=== PATIENT | female | born 1995 | race Caucasian/White ===

== ENCOUNTER 2017-04-05 13:45 | Emergency (ER) | payer OTHER ==
[2017-04-05 13:59] VITALS: BP 106/76; PULSE 70; RESP 18; TEMP 97.9; O2SAT 96
[2017-04-05] MEDS ORDERED: FLUORESCEIN SODIUM 1 MG STRIP OP ONE (14:32)
[2017-04-05] MEDS ORDERED: PROPARACAINE 0.5% 15 ML OPHT DROP ONE (14:32)
--- NOTE | 2017-04-05 14:44 | EDPHY ---
H & P Stated Complaint: r eye irritation/drng and blurred vision Time Seen by Provider: 04/05/17 14:43 - Personal History LMP (Females 10-55): IUD In Place Current Tetanus/Diphtheria Vaccine: Yes - Medical/Surgical History Hx Asthma: No Hx Chronic Respiratory Disease: No Hx Diabetes: No Hx Cardiac Disease: No Hx Renal Disease: No Hx Cirrhosis: No Hx Alcoholism: No Hx HIV/AIDS: No Hx Splenectomy or Spleen Trauma: No Other PMH: denies - Social History Smoking Status: Never smoked Constitutional: Initial Vital Signs Temperature (C) 36.6 C 04/05/17 13:57 Heart Rate 70 04/05/17 13:57 Respiratory Rate 18 04/05/17 13:57 Blood Pressure 106/76 04/05/17 13:57 O2 Sat (%) 96 04/05/17 13:57 O2 Delivery Mode Room Air Allergies/Adverse Reactions: No Known Allergies Allergy (Unverified 04/05/17 13:56) Home Medications: Medication Instructions Recorded Ofloxacin 0.3% [Ocuflox 0.3%] 2 drops OP QID #1 [email or web address] 04/05/17 Medical Decision Making ED Course/Re-evaluation: CHIEF COMPLAINT: Right eye pain and redness HISTORY OF PRESENT ILLNESS: The patient is a 21 y/o female presenting with right eye pain and redness, since this morning. She woke up and her eye was "glued shut". When she wore her contact, her vision was "filmy". The pain is exacerbated when blinking. Denies vision changes, headache, recent trauma, chest pain, shortness of breath , abdominal pain or other pertinent symptoms. REVIEW OF SYSTEMS: A 10 point review of systems was performed and is negative with the exception of the elements mentioned in the history of present illness. PHYSICAL EXAM: HR, BP, O2 Sat, RR. Temp noted General Appearance: Alert, well hydrated, appropriate, and non-toxic appearing. Head: Atraumatic without scalp tenderness or obvious injury Eyes: Right: Lids matted shut, conjunctiva pink, cornea spared, normal vision for patient. Pupils equal, round, reactive to light and accommodation, EOMI, no trauma. Ears: Clear bilaterally, no perforation, normal landmarks Nose: Atraumatic, no rhinorrhea, clear. Throat: Mucus membranes moist. Neck: Supple, nontender, no lymphadenopathy. Respiratory: No retractions, no distress, no wheezes, and no accessory muscle use. Lungs are clear to auscultation bilaterally. Cardiovascular: Regular rate and rhythm, no murmurs, rubs, or gallops. Good capillary refill all extremities. Gastrointestinal: Abdomen is soft, nontender, non-distended, no masses, no rebound, no guarding, no peritoneal signs. Musculoskeletal: Normal active ROM of all extremities, atraumatic. Neurological: Alert, appropriate, and interactive. Non-focal neuro. Skin: No rashes, good turgor, no nodules on palpation. Past medical history: Denies Past surgical history: Saurav Family history: Denies Social history: Friend at bedside, student at DIFFERENTIAL DIAGNOSIS: The differential diagnosis for the patient's eye pain included but was not limited to conjunctivitis, foreign body, viral syndrome. MEDICAL DECISION MAKING: The patient is a 21 y/o female presenting with right eye erythema and pain, onset today. On exam her right eye lids are matted shut, her conjunctiva is pink, and the cornea is spared. Her vision is normal per patient. There is no foreign body visualized. Patient's symptoms are consistent with conjunctivitis. Reassessed patient and prescribed her Ocuflox for her conjunctivitis. Return precautions provided, patient is comfortable with this plan. Departure - Departure Disposition: Home, Routine, Self-Care Clinical Impression: Conjunctivitis Qualifiers: Conjunctivitis type: acute Acute conjunctivitis type: unspecified Laterality: right Qualified Code(s): H10.31 - Unspecified acute conjunctivitis, right eye Condition: Good Instructions: Conjunctivitis (ED) Additional Instructions: 1. Use Ocuflox in both eyes for conjunctivitis. 2. Follow up with your primary care provider in the next week for unimproved symptoms. 3. Return to the Emergency Department if you experience worsening vision, chest pain, shortness of breath, numbness, fever, or other worsening of your symptoms. Referrals: ALFRED ARMTSRONG [Other] - As per Instructions Prescriptions: Ofloxacin 0.3% [Ocuflox 0.3%] 2 drops OP QID #1 opht.btl Report Scribed for: Nestor Bronson Report Scribed by: Lilli Ramires Date of Report: 04/05/17 Time of Report: 15:03
== END 2017-04-05 15:09 | disposition home or self-care (01) ==
DX: H10.31 Unspecified acute conjunctivitis, right eye (principal)